=== PATIENT | male | born 1950 | race Caucasian/White ===

== ENCOUNTER → 2017-06-19 | Day surgery (SDC) | payer OTHER ==
[~2017-06-19] VITALS: Ht 177.8 cm; Wt 69.4 kg
[~2017-06-19] MED LIST: LIDOCAINE/SOD BICARB 8.4% SYR ID ONE; LOR5 PO; MIDAZOLAM 2 MG/2 ML VIAL IVP ONE; MIDAZOLAM 2 MG/2 ML VIAL IVP PRN; MULT1CAP59 PO; MV-M1CAP18 PO; NORMOSOL R SOLN(*) 1000 ML BAG 1,000 ML IV PRN
[2017-06-19 09:45] VITALS: BP 130/84
[2017-06-19 12:19] VITALS: BP 94/64
[2017-06-19 12:30] VITALS: BP 96/67
[2017-06-19 12:45] VITALS: BP 112/75
[2017-06-19 12:55] VITALS: BP 115/78
[2017-06-19 12:57] VITALS: BP 106/83
== END ==
LOC: OR 05-08 00:38
PROVIDERS: ATTEND Family Medicine
DX: Z12.11 Encounter for screening for malignant neoplasm of colon (principal)